=== PATIENT | male | born 1985 | race Two or more races ===

== ENCOUNTER 2017-08-25 00:24 | Emergency (ER) | END 2017-08-25 06:06 | disposition home or self-care (01) ==

== ENCOUNTER 2018-01-23 13:32 | Emergency (ER) | END 2018-01-23 16:24 | disposition home or self-care (01) ==

== ENCOUNTER 2018-12-05 08:53 | Emergency (ER) | payer MEDICAID ==
[~2018-12-05] VITALS: Ht 175.3 cm; Wt 84.4 kg
[~2018-12-05 08:53] MED LIST: ACET500C5 PO; CETI10CA PO; DICY10CA40 PO; GUAI473L22 PO; IBUP-1542 PO; ONDA4TAB8 PO
[2018-12-05 08:56] VITALS: Ht 175.3 cm; Wt 84.4 kg
[2018-12-05] MEDS ORDERED: SOD CHLORIDE 0.9% 1,000 ML IV STA (09:09)
[2018-12-05] MEDS ORDERED: SOD CHLORIDE 0.9% 100 ML ONE (10:38)
[2018-12-05] MEDS ORDERED: IOHEXOL 300MG/ML 150 ML BTL ONE (10:38)
[2018-12-05] MEDS ORDERED: HYDR30CR75 PR (11:04)
--- NOTE | 2018-12-05 13:22 | ERD ---
ER Documentation Chief Complaint Chief Complaint STATES BLOODY STOOLS X15 DAYS HPI This is a 33-year-old male with no past medical history. The patient presents to the emergency department complaining of bloody stools for the past 15 days. Indicates he is been having intermittent abdominal pain. He states the pain is a cramping sensation and more prominent in the left side. The pain does not radiate to the back. The patient indicates that he has had no loose stools or constipation. He states that there is bright red blood coating the stool. He said no hemoptysis no hematemesis and denies any melanotic stools. ROS All systems reviewed and are negative except as per history of present illness. Medications Home Meds Active Scripts Hydrocortisone Acetate* (Anusol-HC*) 30 Gm Cream.gm., 1 APPLIC [place] BID for 10 Days, TUB Prov:SURJIT RODRIGUEZ MD 12/05/18 Discontinued Reported Medications [none] Unknown Strength No Conflict Check 08/25/17 Discontinued Scripts Dicyclomine HCl (Dicyclomine HCl) 10 Mg Capsule, 10 MG PO TID, #20 Prov:STEW ROBBINS 01/23/18 Ondansetron Hcl* (Zofran*) 4 Mg Tablet, 4 MG PO Q6H for NAUSEA AND/OR VOMITING, #30 TAB Prov:STEW ROBBINS 01/23/18 Acetaminophen* (Tylophen*) 500 Mg Capsule, 1 CAP PO Q6H PRN for PAIN AND OR ELEVATED TEMP, #20 CAP Prov:SAMPSON UMAÑA NP 08/25/17 Cetirizine Hcl* (Zyrtec*) 10 Mg Capsule, 10 MG PO DAILY, #30 TAB.CHEW Prov:SAMPSON UMAÑA NP 08/25/17 Guaifenesin-Codeine Phosphate* (Guaifenesin* AC Cough Syrup) 473 Ml Liquid, 10 ML PO Q4H PRN for COUGH, #120 ML Prov:SAMPSON UMAÑA NP 08/25/17 Ibuprofen* (Motrin*) 600 Mg Tab, 600 MG PO Q6H PRN for PAIN AND OR ELEVATED TEMP, #30 TAB Prov:SAMPSON UMAÑA NP 08/25/17 Allergies Allergies: Coded Allergies: No Known Drug Allergies (Verified Allergy, Unknown, 12/05/18) PMhx/Soc Medical and Surgical Hx: pt denies Medical Hx, pt denies Surgical Hx Hx Alcohol Use: Yes (socially) Hx Substance Use: No Hx Tobacco Use: No Smoking Status: Never smoker Physical Exam Vitals Vital Signs Date Temp Pulse Resp B/P (MAP) Pulse Ox O2 O2 Flow FiO2 Time Delivery Rate 12/05/18 61 19 119/92 100 Room Air 11:00 (101) 12/05/18 97.6 63 18 136/84 96 08:56 (101) Physical Exam Constitutional:Well-developed. Well-nourished. HEENT:Normocephalic. Atraumatic.Pupils were equal round reactive to light. Moist mucous membranes.No tonsillar exudates. Neck: No nuchal rigidity. No lymphadenopathy. No posterior cervical spine tenderness or step-offs. Respiratory: Not using accessory muscles of respiration.Lungs were clear to auscultation bilaterally. No rhonchi. No rales. No wheezing. Cardiovascular: Regular rate regular rhythm.No murmurs. No rubs were appreciated.S1, S2 normal. Distal pulses are palpable 2+ bilaterally. GI: Abdomen was soft. Left lower quadrant tenderness. Non Distended. No pulsatile abdominal masses or bruits. No rebound. No guarding. Bowel sounds were present and normal. Rectal: Nonthrombosed external hemorrhoid at the 6 o'clock position. No active bleeding.. Fecal occult blood test was negative. Muscle skeletal: Full range of motion of both the upper and lower extremities bilaterally.Normal muscle tone.No assymetrical calf tenderness or swelling. Skin: No petechia, no purpura. No lesions on the palms or the soles of the feet. No maculopapular rash. NEURO: Patient was alert, awake, orientated x3.No facial droop. Gait observed and normal with no ataxia.Speech had regular rate and rhythm. No focal neurological deficits. Result Diagram: 12/05/1892612/05/18926 Results 24 hrs Laboratory Tests Test 12/05/18 09:27 White Blood Count 4.9 10^3/ul Red Blood Count 5.01 10^6/ul Hemoglobin 15.2 g/dl Hematocrit 45.2 % Mean Corpuscular Volume 90.2 fl Mean Corpuscular Hemoglobin 30.3 pg Mean Corpuscular Hemoglobin Concent 33.6 g/dl Red Cell Distribution Width 13.7 % Platelet Count 283 10^3/UL Mean Platelet Volume 9.4 fl Immature Granulocytes % 0.200 % Neutrophils % 47.8 % Lymphocytes % 35.9 % Monocytes % 10.4 % Eosinophils % 4.7 % Basophils % 1.0 % Nucleated Red Blood Cells % 0.0 /100WBC Immature Granulocytes # 0.010 10^3/ul Neutrophils # 2.3 10^3/ul Lymphocytes # 1.8 10^3/ul Monocytes # 0.5 10^3/ul Eosinophils # 0.2 10^3/ul Basophils # 0.1 10^3/ul Nucleated Red Blood Cells # 0.0 10^3/ul Prothrombin Time 12.7 Sec Prothrombin Time Ratio 1.0 INR International Normalized Ratio 0.94 Activated Partial Thromboplast Time 30.1 Sec Urine Color YELLOW Urine Clarity CLEAR Urine pH 5.0 Urine Specific [place] 1.024 Urine Ketones NEGATIVE mg/dL Urine Nitrite NEGATIVE mg/dL Urine Bilirubin NEGATIVE mg/dL Urine Urobilinogen NEGATIVE mg/dL Urine Leukocyte Esterase NEGATIVE Wilfredo/ul Urine Hemoglobin NEGATIVE mg/dL Urine Glucose NEGATIVE mg/dL Urine Total Protein NEGATIVE mg/dl Stool Occult Blood NEGATIVE Sodium Level 141 mmol/L Potassium Level 4.5 mmol/L Chloride Level 105 mmol/L Carbon Dioxide Level 29 mmol/L Anion Gap 7 Blood Urea Nitrogen 13 mg/dl Creatinine 0.95 mg/dl Est Glomerular Filtrat Rate mL/min > 60 mL/min Glucose Level 105 mg/dl Calcium Level 9.3 mg/dl Total Bilirubin 0.7 mg/dl Direct Bilirubin 0.00 mg/dl Indirect Bilirubin 0.7 mg/dl Aspartate Amino Transf (AST/SGOT) 31 IU/L Alanine Aminotransferase (ALT/SGPT) 65 IU/L Alkaline Phosphatase 72 IU/L Troponin I < 0.012 ng/ml Total Protein 7.6 g/dl Albumin 4.3 g/dl Globulin 3.30 g/dl Albumin/Globulin Ratio 1.30 Amylase Level 91 U/L Lipase 137 U/L Current Medications Medications Dose Sig/Favio Start Time Status Last (Trade) Ordered Route PRN Stop Time Admin Dose Reason Admin Sodium 1,000 ml @ Q1H STAT 12/05/18 DC 12/05/18 Chloride 1,000 mls/hr IV 09:09 09:39 12/05/18 10:08 Iohexol 150 ml STK-MED 12/05/18 DC (Omnipaque ONCE .ROUTE 10:38 300mg/ ml) 12/05/18 10:39 Sodium 100 ml @ ud STK-MED 12/05/18 DC Chloride ONCE .ROUTE 10:38 12/05/18 10:39 IV Flush 10 ml STK-MED 12/05/18 DC (NS 10 ml) ONCE .ROUTE 10:38 12/05/18 10:39 Procedures/MDM The patient presented to the emergency department with hematochezia, suggesting a lower gastrointestinal bleeding. My differential diagnosis included but was not limited to diverticulosis, cancer, polyps, colitis, internal or external hemorrhoids, IBD, and vascular etiologies such as angiodysplasia or aortocolonic fistula. The patient was placed on a developmental specialist, continuous pulse oximetry, and IV access established by nursing staff. The patient had a small nonthrombosed external hemorrhoid however given that the patient had localized abdominal tenderness and left lower quadrant did feel is necessary to obtain a CT scan of the abdomen. There is no evidence of abdominal perforation or diverticulosis. I did order EKG tracing to rule out for atypical microinfarction. 12 Lead EKG tracing ordered and reviewed by myself showed: Sinus bradycardia 53 bpm and no arrhythmia. IL interval normal. QRS duration normal. No ST segment elevation No ST segment depression. No changes consistent with acute ischemia. The patient's hemoglobin stable. He remained in the emergency department with no active lower GI bleed. I did indicate to the patient that he would benefit from an outpatient colonoscopy. He was sent home with Anusol cream. The patient was discharged home in fair condition. They were instructed to return to the emergency department at any time if there was any worsening of their condition. The patient stated they would follow up with their PCP in the next 24-48 hours to initiate a suitable medication regimen under the care of their PCP as well as to allow their PCP to monitor any drug reactions. The patient was discharged home with prescriptions after they gave informed consent to the new medication. They were also fully informed by myself on the adverse effects and adverse drug interactions in order to provide adequate safeguards to prevent possible adverse reactions to medications. Departure Diagnosis: Primary Impression: External hemorrhoids Condition: SURJIT Ogden MD Dec 05, 2018 13:20
[2018-12-05 14:04] VITALS: BP 118/65; PULSE 56; RESP 22
== END 2018-12-05 14:05 | disposition home or self-care (01) ==
LOC: E/R 08:53
DX: K64.4 Residual hemorrhoidal skin tags (principal)
CPT/HCPCS: 36415; 74177; 80053; 81003; 82150; 82270; 83690; 84484; 85025; 85610; 85730; 93005; J7030; Q9967; Z7502; Z7610

== ENCOUNTER 2019-03-05 07:37 | Emergency (ER) | payer MEDICAID ==
[~2019-03-05] VITALS: Ht 170.2 cm; Wt 85.2 kg
[~2019-03-05 07:37] MED LIST changes: -ACET500C5 PO; -CETI10CA PO; -DICY10CA40 PO; -GUAI473L22 PO; +HYDR25SU23 PR; +HYDR30CR75 PR; -IBUP-1542 PO; -ONDA4TAB8 PO
[2019-03-05 07:41] VITALS: Ht 170.2 cm; Wt 85.2 kg
[2019-03-05 09:26] VITALS: BP 129/86; PULSE 78; RESP 18
== END 2019-03-05 09:30 | disposition home or self-care (01) ==
LOC: E/R 07:37
DX: K92.2 Gastrointestinal hemorrhage, unspecified (principal); K64.9 Unspecified hemorrhoids
CPT/HCPCS: 85025; Z7502; 99284